=== PATIENT | female | born 1955 | race Caucasian/White ===

== ENCOUNTER → 2019-10-14 12:56 | Outpatient (CLI) | payer MEDICARE, SELFPAY ==
[2019-10-14 13:55] LABS: ALB/GLOB Ratio 1.1 RATIO (0.9-2.4); AST(SGOT) 24 U/L (15-37); Alanine Aminotransfer ALT/SGPT 51 U/L (13-56); Albumin, Serum 4.1 g/dL (3.2-5.0); Alkaline Phosphatase 46 U/L (45-117); Anion Gap 4 (5-15); BUN 14 mg/dL (7-18); BUN/Creat Ratio 17.2 RATIO (10-20); Calcium,Total 9.2 mg/dL (8.5-10.1); Chloride 104 mmol/L (98-107); Cholesterol 231 mg/dL (200); Creatinine, Serum 0.81 mg/dL (0.55-1.02); EST Glomerular Filtration Rate 75 mL/min (>60); Est Glom Filt Rate - Afr Amer 91 mL/min (>60); Globulin 3.7 g/dL (2.2-4.2); Glucose 91 mg/dL (74-106); High Density Lipoprotein 57 mg/dL; Potassium 3.7 mmol/L (3.5-5.1); Protein, Total 7.8 g/dL (6.4-8.2); Sodium Level 140 mmol/L (136-145); Triglycerides 182 mg/dL; Very Low Density Lipoprotein 36 mg/dL (5-40)
== END ==
PROVIDERS: PCP Internal Medicine; Visit Provider Nurse Practitioner Primary Care
DX: E78.5 Hyperlipidemia, unspecified (principal); I10 Essential (primary) hypertension
CPT/HCPCS: 80053; 80061

== ENCOUNTER → 2020-05-03 13:09 | Outpatient (CLI) | payer MEDICARE, SELFPAY ==
[2020-05-03 14:08] LABS: Cholesterol 244 mg/dL (200); High Density Lipoprotein 58 mg/dL; Triglycerides 240 mg/dL; Very Low Density Lipoprotein 48 mg/dL (5-40)
== END ==
PROVIDERS: PCP Internal Medicine; Referring Provider Nurse Practitioner Primary Care; Visit Provider Nurse Practitioner Primary Care
DX: E78.2 Mixed hyperlipidemia (principal)
CPT/HCPCS: 80061

== ENCOUNTER → 2020-12-07 11:59 | Outpatient (CLI) | payer MEDICARE, SELFPAY ==
[2020-12-07 13:20] LABS: Cholesterol 229 mg/dL (200); High Density Lipoprotein 57 mg/dL; Triglycerides 196 mg/dL; Very Low Density Lipoprotein 39 mg/dL (5-40)
== END ==
PROVIDERS: PCP Internal Medicine; Referring Provider Nurse Practitioner Primary Care; Visit Provider Nurse Practitioner Primary Care
DX: E78.2 Mixed hyperlipidemia (principal)
CPT/HCPCS: 80061

== ENCOUNTER → 2023-04-09 | Outpatient (CLI) | payer MEDICARE, SELFPAY ==
--- OUTSIDE RECORDS SUMMARY | 2023-04-09 08:12 | XMS RPT_ITS | CCD ---
Author Name Unknown Address [address] [place] [address] Organization [facility] Care Team Providers Care Neurology Epilepsy Physician Name Role Phone Daysi Olson MD Primary Care Provider DAYSI OLSON Primary Care Unavailable DAYSI OLSON Referring Unavailable DAYSI OLSON Primary Care Unavailable DAYSI OLSON Attending Unavailable DAYSI OLSON Primary Care Unavailable Medications Completed/Discontinued Medications Medication Drug Class(es) Dates Sig (Normalized) Sig (Original) calcium carbonate 1500 mg / cholecalciferol 200 unt oral tablet (10 sources) Vitamin D Start: 10-18-2004 take 1 tablet by mouth once daily CALCIUM 600 + D(3) 600 MG-200 UNIT ORAL TAB Take one(1) tablet daily. 0 10/18/2004 Active Problems Active Problems Problem Classification Problem Date Documented Date Episodic/Chronic Disorders of lipid metabolism (20 sources) Mixed hyperlipidemia; Translations: [Mixed hyperlipidemia] Onset: 10-18-2004 07-04-2017 Chronic Essential hypertension (14 sources) Hypertensive disorder; Translations: [Essential (primary) hypertension] Onset: 10-18-2004 12-16-2015 Chronic Menopausal disorders (10 sources) Menopausal symptom; Translations: [Menopausal and female climacteric states] Onset: 10-18-2004 10-18-2004 Chronic Miscellaneous mental health disorders (1 source) Primary insomnia; Translations: [Primary insomnia] Chronic Residual codes; unclassified (10 sources) Family history of malignant neoplasm of gastrointestinal tract; Translations: [Family history of malignant neoplasm of digestive organs] 10-23-2008 Episodic Past or Other Problems Problem Classification Problem Date Documented Da te Episodic/Chronic Other connective tissue disease (10 sources) Soft tissue lesion of shoulder region; Translations: [Bursopathy, unspecified] Onset: 09-30-2013 09-30-2013 Episodic Other connective tissue disease (10 sources) Impingement syndrome of left shoulder region; Translations: [Impingement syndrome of left shoulder] Onset: 01-19-2014 01-19-2014 Episodic Other screening for suspected conditions (not mental disorders or infectious disease) (14 sources) Patient encounter status; Translations: [Encounter for other screening for malignant neoplasm of breast] Onset: 10-07-2014 10-07-2014 Episodic Residual codes; unclassified (11 sources) Insomnia; Translations: [Insomnia, unspecified] Onset: 10-18-2004 10-18-2004 Episodic Spondylosis; intervertebral disc disorders; other back problems (10 sources) Low back pain; Translations: [Lumbago] Onset: 03-05-2012 03-05-2012 Episodic Results Test Name Value Interpretation Reference Range Facil ity Vital Signs Date Time Vital Sign Value Performing Clinician Faci lity 06-15-2022 08:45-0400 Diastolic blood pressure 80 mm[Hg] Daysi Olson MD Work Phone: [facility] 06-15-2022 08:45-0400 Systolic blood pressure 128 mm[Hg] Daysi Olson MD Work Phone: [facility] 06-15-2022 08:03-0400 Body weight 68.49 kg Daysi Olson MD Work Phone: [facility] 06-15-2022 08:03-0400 Heart rate 78 /min Daysi Olson MD Work Phone: [facility] 06-15-2022 08:03-0400 Respiratory rate 16 /min Daysi Olson MD Work Phone: [facility] 06-15-2022 08:03-0400 SaO2% (BldA) [Mass fraction] 97 % Daysi Olson MD Work Phone: [facility] 01-24-2022 09:36-0500 Body height 165.1 cm Daysi Olson MD Work Phone: [facility] 01-24-2022 09:36-0500 Body temperature 98.6 [degF] Daysi Olson MD Work Phone: [facility] 01-24-2022 09:36-0500 Body weight 68.95 kg Daysi Olson MD Work Phone: [facility] 01-24-2022 09:36-0500 Diastolic blood pressure 62 mm[Hg] Daysi Olson MD Work Phone: [facility] 01-24-2022 09:36-0500 Heart rate 70 /min Daysi Olson MD Work Phone: [facility] 01-24-2022 09:36-0500 Respiratory rate 12 /min Daysi Olson MD Work Phone: [facility] 01-24-2022 09:36-0500 SaO2% (BldA) [Mass fraction] 98 % Daysi Olson MD Work Phone: [facility] 01-24-2022 09:36-0500 Systolic blood pressure 110 mm[Hg] Daysi Olson MD Work Phone: [facility] 07-25-2021 11:11-0400 Body height 165.1 cm Daysi Olson MD Work Phone: [facility] 07-25-2021 11:11-0400 Body temperature 98.4 [degF] Daysi Olson MD Work Phone: [facility] 07-25-2021 11:11-0400 Body weight 67.13 kg Daysi Olson MD Work Phone: [facility] 07-25-2021 11:11-0400 Diastolic blood pressure 62 mm[Hg] Daysi Olson MD Work Phone: [facility] 07-25-2021 11:11-0400 Heart rate 90 /min Daysi Olson MD Work Phone: [facility] 07-25-2021 11:11-0400 Respiratory rate 12 /min Daysi Olson MD Work Phone: [facility] 07-25-2021 11:11-0400 SaO2% (BldA) [Mass fraction] 97 % Daysi Olson MD Work Phone: [facility] 07-25-2021 11:11-0400 Systolic blood pressure 112 mm[Hg] Daysi Olson MD Work Phone: [facility] Encounters Encounter Date Encounter Type Care Provider Facility Start: 03-27-2023 Telephone encounter Daysi allen MD Work Phone: [facility] Procedures Date Procedure Procedure Detail Performing Clinician Start: 06-16-2022 End: 06-16-2022 Mammography Daysi Olson MD Work Phone: Start: 01-20-2022 Lipid 1996 panel - S kristian or Plasma Screen W[facility] Start: 05-26-2021 Mammography Mammograph y Coordinator Start: 01-24-2021 Adult depression screening assessment Mammography Coordinator Start: 08-18-2019 Colonoscopy Mammograph y Coordinator Plan of Treatment Date Care Activity Detail Author Start: 01-20-2027 Lipid 1996 panel - S kristian or Plasma Lipid Screening [facility] Start: 01-20-2027 Lipid panel Lipid Screening [facility] Start: 01-20-2027 LIPID SCREEN LIPID SCREEN [facility] Start: 07-14-2026 LIPID SCREEN LIPID SCREEN [facility] Start: 12-07-2025 LIPID SCREEN LIPID SCREEN [facility] Start: 01-17-2025 DIABETES SCREEN DIABETES SCREEN [facility] Start: 01-17-2025 Diabetes Screening Diabetes Screenin g [facility] Start: 08-17-2024 Colonoscopy COLONOSCOPY [facility] Start: 08-17-2024 COLORECTAL CANCER SCREENING COLORECTAL CANCER SCREENING [facility] Start: 08-17-2024 Screening for malign ant neoplasm of colon [facility] Start: 01-25-2024 DIABETES SCREEN DIABETES SCREEN [facility] Start: 06-17-2023 Mammography [facility] Start: 06-17-2023 Screening for malign ant neoplasm of breast Mammogram Screening [facility] Start: 06-16-2023 ANNUAL PCP TEAM EDGER SAW OPERATOR ALEX DISEASE VISIT ANNUAL PCP TEAM CHRONIC DISEASE VISIT [facility] Start: 02-19-2023 Advance Directive Discussion Advance Directive Discussion [facility] Start: 02-19-2023 Depression Assessment Depression Ass essment [facility] Start: 01-24-2023 ANNUAL PCP TEAM EDGER SAW OPERATOR ALEX DISEASE VISIT ANNUAL PCP TEAM CHRONIC DISEASE VISIT [facility] Start: 01-24-2023 BP CONTROLLED (<130/80) BP CONTROLLE D (<130/80) [facility] Start: 01-24-2023 Urine microalbumin profile [facility] Immunizations Immunization Date Immunization Notes Care Provider Joseluis agustin 11-14-2022 influenza (aIIV4) vaccine, age 65+ yr, quadrivalent, PF (FLUAD QUAD) Daysi Olson MD Work Phone: [facility] 11-05-2020 influenza, high dose seasonal, preservative-free Mammography Coordinator [facility] Work Phone: 05-01-2020 COVID-19 vaccine, ag e 12+ yr (PFIZER-BIONTSimtrol - PURPLE TOP) Mammography Coordinator [facility] 02-16-2020 zoster vaccine recombinant Mammography Coordinator [facility] 10-31-2019 pneumococcal polysaccharide vaccine, 23 valent Daysi Olson MD Work Phone: [facility] 11-20-2018 influenza, high dose seasonal, preservative-free Mammography Coordinator [facility] 11-20-2018 pneumococcal conjuga te vaccine, 13 valent Mammography Coordinator [facility] 11-08-2016 influenza, seasonal, injectable Mammography Coordinator [facility] 03-30-2015 influenza, injectabl e, quadrivalent, contains preservative Mammography Coordinator [facility] Work Phone: 12-23-2013 influenza, seasonal, injectable Mammography Coordinator [facility] 12-20-2012 influenza virus vaccine, unspecified formulation Mammography Coordinator [facility] 12-14-2011 zoster vaccine, live Mammogr aphy Coordinator [facility] 11-30-2011 influenza virus vaccine, unspecified formulation Mammography Coordinator [facility] 12-12-2010 tetanus toxoid, redu gila diphtheria toxoid, and acellular pertussis vaccine, adsorbed Mammography Coordinator [facility] 02-20-1996 diphtheria and tetan us toxoids, adsorbed for pediatric use Mammography Coordinator [facility] Work Phone: Payers Date Payer Category Payer Medicare [employer] [place] [id number] 2019-Present [phone] [address] [place] [address] [facility] [id number] 2019 Medicare [employer] [place] [id number] 2019-Present [phone] [address] [place] [address] [facility] [id number] 2019 Medicare [id number] Social History Date Type Detail Facility Start: 12-12-2010 Tobacco smoking status NHIS Never sm oked tobacco [facility] Start: 01-24-2021 End: 03-16-2023 Alcohol intake Current drinker of alcohol (finding) [facility] Start: 01-24-2021 End: 03-13-2022 Alcohol intake [facility] Start: 01-22-2021 End: 01-23-2022 History SDOH Alcohol Frequency 5 [facility] Start: 01-22-2021 End: 01-23-2022 History SDOH Alcohol Std Drinks 1 [facility] Start: 01-22-2021 End: 01-23-2022 History SDOH Social Connections Get Together 4 [facility] Start: 01-22-2021 End: 01-23-2022 History SDOH Social Connections Meetings 3 [facility] Start: 01-22-2021 End: 01-23-2022 History SDOH Physical Activity DPW 6 [facility] Start: 01-22-2021 End: 01-23-2022 History SDOH Transport Med 2 [facility] Start: 10-20-2019 Education 15 [facility] Start: 1955 Sex Assigned At Female C [facility] Start: 05-16-2021 End: 01-17-2022 Exposure to SARS-CoV-2 (event) Not sure [facility] Start: 12-12-2010 Tobacco use and exposure Smoke less tobacco non-user [facility] Start: 01-23-2022 History SDOH Social Connections Get Together 98 [facility] Start: 01-23-2022 End: 03-13-2022 Social connection and isolation panel [facility] How often do you get together with friends or relatives? Patient refused [facility] Do you belong to any clubs or organizations such as pentecostal groups, unions, fraternal or athletic groups, or school groups? Yes [facility] Are you now , , , , never or living with a partner? [facility] Do you feel stress - tense, restless, nervous, or anxious, or unable to sleep at night because your mind is troubled all the time - these days [OSQ] Only a little [facility] (I/We) worried wheth er (my/our) food would run out before (I/we) got money to buy more. Never true [facility] In the past 12 month s, was there a time when you were not able to pay the mortgage or rent on time? No [facility] Start: 01-22-2021 Gender identity Identifies as female gender (finding) [facility] Clinical Notes 05-26-2021 to 03-28-2023 Telephone Encounter - Nakul Mera RN - 03/28/2023 11:10 AM ESTTelephone Encounter - Aislinn Burch MA - 03/27/2023 9:47 AM ESTTelephone Encounter - Katty Desai - 03/27/2023 7:02 AM EST Note Date & Type Note Facility 03-28-2023 Miscellaneous Notes Pt reports she scheduled the mammogram on . Order pended, please file if agreeable. Aislinn Burch MA Pt sent in [facility] message requesting an order for her yearly Mammogram, her last mammogram was 06/16/2022 Please review and advise Thank you! documented in this encounter [facility] 03-16-2023 Note HNO ID: [id number] Author: HITESH CHANDLER PA Service: ? Author Type: Physician Automobile Rental Clerk Type: Progress Notes Filed: 03/16/2023 13:06 Note Text: This note was created using Zaldivariter. Subjective Dayanara Enciso is a 67 year old female. HPI 67-year-old female presents for left ear feeling clogged. Symptoms started last night after washing her hair. She felt like there is some fluid in there. She states is difficult to hear out of the ear. No fevers. No cough or congestion. She states she always has some postnasal drainage, unchanged. She has a little bit of a scratchy throat, but states is not sore. No vomiting or diarrhea. No other complaint. Review of Systems Constitutional: Negative for chills and fever. HENT: Positive for hearing loss (With left ear feeling clogged) and postnasal drip (Chronic). Negative for congestion, ear discharge, ear pain and sore throat. Respiratory: Negative for cough and shortness of breath. Cardiovascular: Negative for chest pain. Gastrointestinal: Negative for diarrhea and vomiting. Objective BP 144/86 Pulse 95 Temp 36.4 ?C (97.6 ?F) Resp 20 Wt 69.9 kg (154 lb 3.2 oz) SpO2 99% BMI 25.66 kg/m? Physical Exam Vitals and nursing note reviewed. Constitutional: General: She is not in acute distress. Appearance: Normal appearance. She is not toxic-appearing. HENT: Right Ear: Tympanic membrane and ear canal normal. Left Ear: Ear canal normal. A middle ear effusion is present. There is impacted cerumen. Ears: Comments: Impacted cerumen left ear. Ear lavage completed by LYNN. Postprocedure exam reveals no bleeding, no perforation. Small amount of clear fluid behind left TM. No signs of infection. Nose: Nose normal. Mouth/Throat: Mouth: Mucous membranes are moist. Pharynx: No oropharyngeal exudate or posterior oropharyngeal erythema. Eyes: Conjunctiva/sclera: Conjunctivae normal. Cardiovascular: Rate and Rhythm: Normal rate and regular rhythm. Pulmonary: Effort: Pulmonary effort is normal. Breath sounds: Normal breath sounds. Neurological: Mental Status: She is alert. Assessment and Plan ASSESSMENT/PLAN: 1. Impacted cerumen of left ear - ICD9: 380.4, ICD10: H61.22 (primary diagnosis) - REMOVAL OF IMPACTED CERUMEN - INSTRUMENTATION -Ear lavage completed by LYNN. Post procedure exam reveals small amount of clear fluid behind left TM. No signs of infection. No bleeding. No perforation. 2. Dysfunction of left eustachian tube - ICD9: 381.81, ICD10: H69.92 -Patient states she has had some sinus issues. She does have small left-sided mid ear effusion. Clear fluid. No signs of infection. Recommend Flonase x 1 week. -Advised if no improvement in her hearing issues or her ear feeling clogged, she needs to follow-up with PCP next week. She understands. Diagnosis and treatment plan were discussed and questions were answered to the patient's satisfaction. Pt acknowledged understanding of concepts and follow up plan. Specific signs and symptoms that would indicate the need for higher level of care were discussed in detail warranting prompt ER evaluation. JAMIA Kinsey [facility] 06-19-2022 Miscellaneous Notes June 19, 2022 PID: [id number] Dayanara Enciso [id number] [place] [address] Dear Ms. Enciso, We are pleased to inform you that the results of your recent breast imaging exam on 06/16/2022 are normal. Early detection of cancer is very important. We also understand recommendations regarding breast cancer screening are controversial. Please discuss with your primary care provider which strategy is best for you and whether a mammogram is right for you. Your imaging studies and report will be kept on file at [facility] as part of your permanent medical record and are available for your continuing care. Thank you for allowing us to help in meeting your health care needs. Sincerely, Dr. Urrutia Interpreting Radiologist [facility] (Normal over 40) documented in this encounter [facility] 06-16-2022 Note HNO ID: [id number] Author: RT Haresh(R) Service: ? Author Type: Technologist Type: Progress Notes Filed: 06/16/2022 9:18 AM Note Text: Radiology Service Progress Note PATIENT NAME: Dayanara Enciso DATE OF SERVICE: June 16, 2022 TIME: 9:18 AM PATIENT IDENTITY VERIFICATION COMPLETED USING TWO (2) IDENTIFIERS: Name and Date of confirmed by patient verbally. FALL SCREENING: Has the patient had 2 falls in the last year or 1 fall with injury or currently using an Ambulatory Assistive Device (Walker, Cane, Wheelchair, Crutches, etc.)? No PATIENT GENDER DATA: Female. status: : No status: NO. PATIENT RELEVANT IMPLANT DATA REVIEWED: Not Applicable RADIOLOGY DEPARTMENT: Mammography PERIPHERAL IV DATA: Not applicable SIGNED BY: RT Haresh(R) June 16, 2022 9:18 AM [facility] 06-16-2022 History of Present illness Narrative Radiology Service Progress Note PATIENT NAME: Dayanara Enciso DATE OF SERVICE: June 16, 2022 TIME: 9:18 AM PATIENT IDENTITY VERIFICATION COMPLETED USING TWO (2) IDENTIFIERS: Name and Date of confirmed by patient verbally. FALL SCREENING: Has the patient had 2 falls in the last year or 1 fall with injury or currently using an Ambulatory Assistive Device (Walker, Cane, Wheelchair, Crutches, etc.)? No PATIENT GENDER DATA: Female. status: : No status: NO. PATIENT RELEVANT IMPLANT DATA REVIEWED: Not Applicable RADIOLOGY DEPARTMENT: Mammography PERIPHERAL IV DATA: Not applicable SIGNED BY: RT Haresh(R) June 16, 2022 9:18 AM documented in this encounter [facility] 06-15-2022 Note HNO ID: [id number] Author: Daysi Olson MD Service: ? Author Type: Physician Type: Progress Notes Filed: 06/15/2022 1:43 PM Note Text: Medicare Yearly Visit Medical B eligibilty date age 63 Date of last exam none in the past year PAST MEDICAL HISTORY Diagnosis Date Diverticulosis of colon (without mention of hemorrhage) Diverticulosis of colon (without mention of hemorrhage) Family history of malignant neoplasm of gastrointestinal tract Family history of malignant neoplasm of gastrointestinal tract Internal hemorrhoids without mention of complication Unspecified essential hypertension PAST SURGICAL HISTORY Procedure Laterality Date COLONOSCOPY FLX DX W/COLLJ SPEC WHEN PFRMD 12/2003 Colonoscopy COLONOSCOPY FLX DX W/COLLJ SPEC WHEN PFRMD 01/29/09 COLONOSCOPY FLX DX W/COLLJ SPEC WHEN PFRMD 12/25/13 Colonoscopy CORRECT BUNION,SIMPLE Bunion OOPHORECTOMY PARTIAL/TOTAL UNI/BI Oophorectomy TOTAL ABDOMINAL HYSTERECT W/WO RMVL TUBE OVARY 2002 Hysterectomy, MIRI/BSO ALLERGIES: Patient has no known allergies. Medications reviewed: Yes FAMILY HISTORY Problem Relation Age of Onset Coronary Artery Disease Mother age 61 Colon Cancer Father dx age 75 Coronary Artery Disease Father 02/2005 Diabetes Mother Hypertension Mother SOCIAL HISTORY: Social History Tobacco Use Smoking status: Never Smokeless tobacco: Never Substance Use Topics Alcohol use: Yes Alcohol/week: 10.0 standard drinks Comment: occasionally Drug use: No Dayanara do regular walking exercise, 9 months of the year. Unless there is snow on the ground she is not able to. She watches her diet for sodium, low fat and low cholesterol most of the time. List of current specialists seen: Nicole chavarria End of Live Planning discussed including patients advanced directive wishes: Yes I am willing to follow Dayanara's advanced directives. PHQ-2 / Depression screen She in the past two weeks denies having felt down, depressed, hopeless, or with little interest or pleasure in doing things. Functional Ability/Safety Screen 1. Was the patient's timed Up and Go test unsteady or longer than 30 seconds? No 2. Does the patient need help with the phone, transportation, shopping,preparing meals, housework, laundry, medications or managing money? No 3. Does your home have rugs in the hallway, lack of grab bars in the bathroom, lack of handrails on the stairs or have poor lighting? No Hearing Evaluation: within normal limits and normal PHYSICAL EXAM BP 138/82 Pulse 78 Resp 16 Wt 68.5 kg (151 lb) SpO2 97% BMI 25.13 kg/m? Alert and oriented X 3: YES Body mass index is 25.13 kg/m?. ASSESSMENT/PLAN: 67 year old female The following prevention plan was discussed during the office visit and provided to the patient: Daysi Olson MD Reason for Visit Patient presents with: Physical: Needs Mammogram ordered to schedule Left side discomfort x 2 days Dayanara Enciso is a 67 year old female who presents here today for Above Complaints.. Health Maintenance BONE DENSITY ADVANCE DIRECTIVE DISCUSSION DEPRESSION ASSESSMENT MAMMOGRAM HPI Refused bone density as she does not want to take medication Wanting to have a mammogram today. HTN: BP controlled today. Checks BP at home. Compliant with medications. Denies any chest pain, palpitations, SOB, swelling in the feet. Careful with diet to avoid salt, trying to eat more fruits and vegetables, exercises regularly Depression Screening 07/04/2017 07/09/2018 01/24/2022 06/15/2022 PHQ-2 Score 0 0 0 0 Depression screening tool completed and reviewed. Based on score and interview, patient is not at risk for depression. Screening tool discussed with patient, and I recommended no further intervention at this time. No problem-specific Assessment AND Plan notes found for this encounter. PAST MEDICAL HISTORY Diagnosis Date Diverticulosis of colon (without mention of hemorrhage) Diverticulosis of colon (without mention of hemorrhage) Family history of malignant neoplasm of gastrointestinal tract Family history of malignant neoplasm of gastrointestinal tract Internal hemorrhoids without mention of complication Unspecified essential hypertension PAST SURGICAL HISTORY Procedure Laterality Date COLONOSCOPY FLX DX W/COLLJ SPEC WHEN PFRMD 12/2003 Colonoscopy COLONOSCOPY FLX DX W/COLLJ SPEC WHEN PFRMD 01/29/09 COLONOSCOPY FLX DX W/COLLJ SPEC WHEN PFRMD 12/25/13 Colonoscopy CORRECT BUNION,SIMPLE Bunion OOPHORECTOMY PARTIAL/TOTAL UNI/BI Oophorectomy TOTAL ABDOMINAL HYSTERECT W/WO RMVL TUBE OVARY 2002 Hysterectomy, MIRI/BSO FAMILY HISTORY Problem Relation Age of Onset Coronary Artery Disease Mother age 61 Colon Cancer Father dx age 75 Coronary Artery Disease Father 02/2005 Diabetes Mother Hypertension Mother Social History Tobacco Use Smoking status: Never Smokeless tobacco: Crystal (more content not included)... [facility] 06-15-2022 History of Present illness Narrative Medicare Yearly Visit Medical B eligibilty date age 63 Date of last exam none in the past year PAST MEDICAL HISTORY Diagnosis Date Diverticulosis of colon (without mention of hemorrhage) Diverticulosis of colon (without mention of hemorrhage) Family history of malignant neoplasm of gastrointestinal tract Family history of malignant neoplasm of gastrointestinal tract Internal hemorrhoids without mention of complication Unspecified essential hypertension PAST SURGICAL HISTORY Procedure Laterality Date COLONOSCOPY FLX DX W/COLLJ SPEC WHEN PFRMD 12/2003 Colonoscopy COLONOSCOPY FLX DX W/COLLJ SPEC WHEN PFRMD 01/29/09 COLONOSCOPY FLX DX W/COLLJ SPEC WHEN PFRMD 12/25/13 Colonoscopy CORRECT BUNION,SIMPLE Bunion OOPHORECTOMY PARTIAL/TOTAL UNI/BI Oophorectomy TOTAL ABDOMINAL HYSTERECT W/WO RMVL TUBE OVARY 2002 Hysterectomy, MIRI/BSO ALLERGIES: Patient has no known allergies. Medications reviewed: Yes FAMILY HISTORY Problem Relation Age of Onset Coronary Artery Disease Mother age 61 Colon Cancer Father dx age 75 Coronary Artery Disease Father 02/2005 Diabetes Mother Hypertension Mother SOCIAL HISTORY: Social History Tobacco Use Smoking status: Never Smokeless tobacco: Never Substance Use Topics Alcohol use: Yes Alcohol/week: 10.0 standard drinks Comment: occasionally Drug use: No Dayanara do regular walking exercise, 9 months of the year. Unless there is snow on the ground she is not able to. She watches her diet for sodium, low fat and low cholesterol most of the time. List of current specialists seen: Nicole chavarria End of Live Planning discussed including patients advanced directive wishes: Yes I am willing to follow Dayanara's advanced directives. PHQ-2 / Depression screen She in the past two weeks denies having felt down, depressed, hopeless, or with little interest or pleasure in doing things. Functional Ability/Safety Screen 1. Was the patient's timed Up and Go test unsteady or longer than 30 seconds? No 2. Does the patient need help with the phone, transportation, shopping,preparing meals, housework, laundry, medications or managing money? No 3. Does your home have rugs in the hallway, lack of grab bars in the bathroom, lack of handrails on the stairs or have poor lighting? No Hearing Evaluation: within normal limits and normal PHYSICAL EXAM BP 138/82 Pulse 78 Resp 16 Wt 68.5 kg (151 lb) SpO2 97% BMI 25.13 kg/m Alert and oriented X 3: YES Body mass index is 25.13 kg/m . ASSESSMENT/PLAN: 67 year old female The following prevention plan was discussed during the office visit and provided to the patient: Daysi Olson MD Reason for Visit Patient presents with: Physical: Needs Mammogram ordered to schedule Left side discomfort x 2 days Dayanara Enciso is a 67 year old female who presents here today for Above Complaints.. Health Maintenance BONE DENSITY ADVANCE DIRECTIVE DISCUSSION DEPRESSION ASSESSMENT MAMMOGRAM HPI Refused bone density as she does not want to take medication Wanting to have a mammogram today. HTN: BP controlled today. Checks BP at home. Compliant with medications. Denies any chest pain, palpitations, SOB, swelling in the feet. Careful with diet to avoid salt, trying to eat more fruits and vegetables, exercises regularly Depression Screening 07/04/2017 07/09/2018 01/24/2022 06/15/2022 PHQ-2 Score 0 0 0 0 Depression screening tool completed and reviewed. Based on score and interview, patient is not at risk for depression. Screening tool discussed with patient, and I recommended no further intervention at this time. No problem-specific Assessment & Plan notes found for this encounter. PAST MEDICAL HISTORY Diagnosis Date Diverticulosis of colon (without mention of hemorrhage) Diverticulosis of colon (without mention of hemorrhage) Family history of malignant neoplasm of gastrointestinal tract Family history of malignant neoplasm of gastrointestinal tract Internal hemorrhoids without mention of complication Unspecified essential hypertension PAST SURGICAL HISTORY Procedure Laterality Date COLONOSCOPY FLX DX W/COLLJ SPEC WHEN PFRMD 12/2003 Colonoscopy COLONOSCOPY FLX DX W/COLLJ SPEC WHEN PFRMD 01/29/09 COLONOSCOPY FLX DX W/COLLJ SPEC WHEN PFRMD 12/25/13 Colonoscopy CORRECT BUNION,SIMPLE Bunion OOPHORECTOMY PARTIAL/TOTAL UNI/BI Oophorectomy TOTAL ABDOMINAL HYSTERECT W/WO RMVL TUBE OVARY 2001 Hysterectomy, MIRI/BSO FAMILY HISTORY Problem Relation Age of Onset Coronary Artery Disease Mother age 61 Colon Cancer Father dx age 75 Coronary Artery Disease Father 02/2005 Diabetes Mother Hypertension Mother Social History Tobacco Use Smoking status: Never Smokeless tobacco: Never Substance Use Topics Alcohol use: Yes Alcohol/week: 10.0 standard drinks Comment: occasionally Drug use: No Past medical history, appointments, medications, allergies reviewed. Pertinent Lab/Diagnostic Studies are reviewed and discussed today Current Outpatient Medications: hydroCHLOROthiazide (HYDRODIURIL, ESIDRIX) 25 mg tablet enalapril (VASOTEC) 10 mg tablet rosuvastatin (CRESTOR) 10 mg tablet omega-3 fatty acids (FISH OIL CONCENTRATE ORAL) ubidecarenone (CO Q-10 ORAL) CALCIUM 600 + D(3) 600 MG-200 UNIT ORAL TAB traZODone (DESYREL) 50 mg tablet Review of Systems CONSTITUTIONAL: No fevers, chills night sweats, unintended weight loss CARDIOVASCULAR: No chest pain, dyspnea, palpitations, orthopnea, PND, ankle edema. PULM: No dyspnea, unexplained cough. GI: No dysphagia/odynophagia, problematic reflux, constipation, diarrhea, changes in stool habits, hematochezia, melena. : No new urinary complaints, including dysuria, gross hematuria or pyuria. NEURO: No new balance problems, peripheral weakness/paresthesias or numbness of concern. Physical Exam BP 138/82 Pulse 78 Resp 16 Wt 68.5 kg (151 lb) SpO2 97% BMI 25.13 kg/m General appearance: Well appearing, alert, in no acute distress, well nourished. Skin: Skin color, texture, turgor normal, no suspicious rashes or lesions Head: Normocephalic, no masses, lesions, tenderness or abnormalities Eyes: Anicteric sclera. Pupils are equally round and reactive to light. Extraocular movements are intact. Lungs: Lungs clear to auscultation. No wheezing, rhonchi, rales Heart: RRR without murmur, gallop, or rubs. Extremities: No deformities, edema, skin discoloration, clubbing or cyanosis. Good capillary refill. ASSESSMENT/PLAN: 1. Medicare annual wellness visit, subsequent - ICD9: V70.0, ICD10: Z00.00 (primary diagnosis) - Counseled on healthy diet and regular exercise - Calcium intake with supplements or by diet of 1000 mg/day for under 50, 7724-4885 mg/day for 50+ 2. Breast cancer screening by mammogram - ICD9: V76.12, ICD10: Z12.31 - Completed pelvic and breast exam - Encouraged monthly BSE - Follow up for annual exam in one year. - VERONICA SCREENING 3. Essential hypertension - ICD9: 401.9, ICD10: I10 - good control - Recommended regular aerobic exercise. - Recommend home blood pressure monitoring, to bring results in on next visit - Goal of BP <130/80 Daysi Olson MD documented in this encounter [facility] 01-24-2022 Instructions Daysi Olson MD - 01/24/2022 10:20 AM EST Sleep Hygiene (Edu) You have been given information on Sleep Hygiene. Sleep hygiene is the practice of following good sleep habits in order to get a restful, effective night s sleep. Poor sleep hygiene can lead to long-term insomnia and sleep deprivation. When you do not get restful, effective sleep, it will interfere with work, driving, and normal day-to-day activities. It can also have bad effects on your physical and mental health. Fortunately, there are a few simple guidelines that can help you to improve your sleep. They include changes in your personal sleeping habits and your sleeping environment, along with the creation of a routine for getting ready to go to bed. The following tips will help you with your sleep habits: Establish a constant bedtime and an awakening time. This is one of the most important habits in developing good sleep patterns. Try to go to bed at the same time every night, and awaken at the same time each morning. You should not nap more than 30 minutes. Avoid alcohol 4-6 hours before bedtime. Alcohol does have a sleep-inducing effect, however, as the alcohol levels in your blood start to decrease, many people experience a stimulant or wake-up effect. Avoid caffeine 4-6 hours before bedtime. This includes coffee, tea, soda, and chocolate. Avoid spicy foods and foods with a lot of sugar 4-6 hours before bedtime. These foods typically affect your ability to stay asleep. Try to eat a light snack with foods high in tryptophan just before bedtime. Milk, bananas, yogurt, and turkey are some examples. Tryptophan increases levels of certain chemicals (neurotransmitters) in your brain. Studies have shown that this has a calming and sleep-inducing effect. Get into the habit of establishing a pre-sleep ritual. Examples of some things that can help you get to sleep include taking a warm bath or reading just before going to bed. Improve your sleep environment. For example, block out any distracting noise, eliminate as much light as you can, adjust the room to a comfortable temperature, and be sure to have comfortable bedding. Make sure that your bed is only used for sleeping. In time, your mind will associate your bed with sleep. Exercise regularly, but not right before bed. Regular exercise can help deepen sleep. However, strenuous exercise too close to bedtime may be stimulating and lessen your ability to fall asleep. Stop smoking entirely. If you are not able to quit, do not smoke just before bedtime. Nicotine is a stimulant. In addition, many physical health problems, such as some chronic illnesses, arthritis, acid reflux (heartburn), and undiagnosed sleep disorders, can interfere with sleep. Certain medications used to treat these medical problems may also have sleeplessness as a side-effect. Psychological or mental health problems, including depression and anxiety can cause difficulty sleeping. You should follow up with your doctor for these issues, so that together, you can develop a plan for treatment. There are also medications to help you with sleep problems; however, they are only a short-term solution and can have undesirable side-effects. Remember, the rodriguez to the best overall improvement of sleep is to establish good sleep hygiene to help you fall asleep naturally. For more information, contact your doctor, or call or visit the National Sleep Foundation at www.sleepfoundation.org. documented in this encounter [facility] 01-24-2022 History of Present illness Narrative Reason for Visit Patient presents with: F/U 6 months: follow up- HCTZ and refills Dayanara Enciso is a 66 year old female who presents here today for Above Complaints.. Health Maintenance DTAP,TDAP,TD(3 - Td or Tdap) DEPRESSION ASSESSMENT HPI Hypertension: BP controlled today 110/62. Tolerating current medication regime well. Voices no complaints. Checks BP couple times a month. No chest pain, palpitations or edema. No SOB. Exercise: Walks a couple of miles daily. Still complains of aches and pains. Occasional ibuprofen use. Diet: Eats 3 meals a day with a couple of snacks. Poor fluid intake. Encouraged increasing hydration. Lipids reviewed. Uses salt shaker frequently, eating red meat. Plans to eat more fruits and vegetables. Sleep: Difficulty sleeping. Chronic issue for the last few years. Average 6 hours a night. Tylenol pm every night. Avoids naps during the day. Denies stressors. Patients states she struggles to shut off her brain at HS. Denies caffeinated beverages in the evening. Eats a piece of resses cups. She tried melatonin but does not work for her., she would like a trial of trazodone. No problem-specific Assessment & Plan notes found for this encounter. PAST MEDICAL HISTORY Diagnosis Date Diverticulosis of colon (without mention of hemorrhage) Diverticulosis of colon (without mention of hemorrhage) Family history of malignant neoplasm of gastrointestinal tract Family history of malignant neoplasm of gastrointestinal tract Internal hemorrhoids without mention of complication Unspecified essential hypertension PAST SURGICAL HISTORY Procedure Laterality Date COLONOSCOPY FLX DX W/COLLJ SPEC WHEN PFRMD 12/2003 Colonoscopy COLONOSCOPY FLX DX W/COLLJ SPEC WHEN PFRMD 01/29/09 COLONOSCOPY FLX DX W/COLLJ SPEC WHEN PFRMD 12/25/13 Colonoscopy CORRECT BUNION,SIMPLE Bunion OOPHORECTOMY PARTIAL/TOTAL UNI/BI Oophorectomy TOTAL ABDOMINAL HYSTERECT W/WO RMVL TUBE OVARY 2001 Hysterectomy, MIRI/BSO FAMILY HISTORY Problem Relation Age of Onset Coronary Artery Disease Mother age 61 Colon Cancer Father dx age 75 Coronary Artery Disease Father 02/2005 Diabetes Mother Hypertension Mother Social History Tobacco Use Smoking status: Never Smokeless tobacco: Never Substance Use Topics Alcohol use: Yes Alcohol/week: 10.0 standard drinks Comment: occasionally Drug use: No Past medical history, appointments, medications, allergies reviewed. Pertinent Lab/Diagnostic Studies are reviewed and discussed today Current Outpatient Medications: rosuvastatin (CRESTOR) 10 mg tablet hydroCHLOROthiazide (HYDRODIURIL, ESIDRIX) 25 mg tablet enalapril (VASOTEC) 10 mg tablet omega-3 fatty acids (FISH OIL CONCENTRATE ORAL) ubidecarenone (CO Q-10 ORAL) CALCIUM 600 + D(3) 600 MG-200 UNIT ORAL TAB Review of Systems CONSTITUTIONAL: No fevers, chills night sweats, unintended weight loss CARDIOVASCULAR: No chest pain, dyspnea, palpitations, orthopnea, PND, ankle edema. PULM: No dyspnea, unexplained cough. GI: No dysphagia/odynophagia, problematic reflux, constipation, diarrhea, changes in stool habits, hematochezia, melena. : No new urinary complaints, including dysuria, gross hematuria or pyuria. NEURO: No new balance problems, peripheral weakness/paresthesias or numbness of concern. Physical Exam BP 110/62 (BP Site: Left Arm, BP Position: Sitting, BP Cuff Size: Large Adult) Pulse 70 Temp 37 C (98.6 F) Resp 12 Ht 165.1 cm (5' 5 ) Wt 68.9 kg (152 lb) SpO2 98% BMI 25.29 kg/m General appearance: Well appearing, alert, in no acute distress, well nourished. Skin: Skin color, texture, turgor normal, no suspicious rashes or lesions Head: Normocephalic, no masses, lesions, tenderness or abnormalities Eyes: Anicteric sclera. Pupils are equally round and reactive to light. Extraocular movements are intact. Lungs: Lungs clear to auscultation. No wheezing, rhonchi, rales Heart: RRR without murmur, gallop, or rubs. Extremities: No deformities, edema, skin discoloration, clubbing or cyanosis. Good capillary refill. ASSESSMENT/PLAN: 1. Insomnia, unspecified type - ICD9: 780.52, ICD10: G47.00 (primary diagnosis) Went over the side effect profile for the drug with the patient, mentioned every one of it , discussed appropriate concerns , alternatives and benefits of the drug, - TRAZODONE 50 MG TABLET 2. Essential hypertension - ICD9: 401.9, ICD10: I10 - good control - Recommended regular aerobic exercise. - Recommend home blood pressure monitoring, to bring results in on next visit - Goal of BP <130/80 - HYDROCHLOROTHIAZIDE 25 MG TABLET - ENALAPRIL MALEATE 10 MG TABLET 3. Mixed hyperlipidemia - ICD9: 272.2, ICD10: E78.2 - good control - Continue current medication. - LIPID PANEL BASIC - COMP METABOLIC PANEL Daysi Olson MD documented in this encounter [facility] 01-10-2022 Miscellaneous Notes Patient has been identified by name and date of : Yes Patient phones for refill(s): Requested Prescriptions Pending Prescriptions Disp Refills rosuvastatin (CRESTOR) 10 mg tablet 90 tablet 3 Sig: Take 1 tablet by mouth once daily. for cholesterol Date of last office visit in primary care: 07/25/21 next apt 01/24/22 Last 2 Encounter Wt Readings: Date: Wt: 07/25/2021 67.1 kg (148 lb) 01/24/2021 65.8 kg (145 lb) Previous labs/tests for medication: Cholesterol: HDL Cholesterol (mg/dL) Date Value 07/14/2021 55 12/07/2020 Test sent to [facility]. LDL Cholesterol (mg/dL) Date Value 07/14/2021 104 12/07/2020 Test sent to [facility]. ALT (U/L) Date Value 01/24/2021 Non HDL Cholesterol (mg/dL) Date Value 07/14/2021 130 12/07/2020 Test sent to [facility]. Thank you. Martha Mejia LPN documented in this encounter [facility] 07-25-2021 History of Present illness Narrative Reason for Visit Patient presents with: Established Patient: 6 month follow up Dayanara Enciso is a 66 year old female who presents here today for Above Complaints.. Health Maintenance DTAP,TDAP,TD(3 - Td or Tdap) ADVANCE DIRECTIVE DISCUSSION COVID-19 VACCINE(4 - Booster for Pfizer series) HPI HTN: Compliant with medications. Denies any chest pain, palpitations, or edema. No SOB. Doesn't check BP at home generally. Careful with diet to avoid salt, trying to eat more fruits and vegetables, exercises regularly. We discussed today cutting down the hctz from 25 to 12.5 HPL: Reviewed test results with patient , takes medications regularly , does not report side effects. Conscious to avoid red meats, full fat dairy and its by products. Exercising 3 to 5 times a week. She has normal aches and pains of 66 year old. The 10-year ASCVD risk score (Zara DC Jr., et al., 2013) is: 7.7% Values used to calculate the score: Age: 66 years Sex: Female Is Non- : No Diabetic: No Tobacco smoker: No Systolic Blood Pressure: 112 mmHg Is BP treated: Yes HDL Cholesterol: 55 mg/dL Total Cholesterol: 185 mg/dL Patient has no issues with sleep, she takes a Tylenol PM every night and her old lady aches and pains. No problem-specific Assessment & Plan notes found for this encounter. PAST MEDICAL HISTORY Diagnosis Date Diverticulosis of colon (without mention of hemorrhage) Diverticulosis of colon (without mention of hemorrhage) Family history of malignant neoplasm of gastrointestinal tract Family history of malignant neoplasm of gastrointestinal tract Internal hemorrhoids without mention of complication Unspecified essential hypertension PAST SURGICAL HISTORY Procedure Laterality Date COLONOSCOPY FLX DX W/COLLJ SPEC WHEN PFRMD 12/2003 Colonoscopy COLONOSCOPY FLX DX W/COLLJ SPEC WHEN PFRMD 01/29/09 COLONOSCOPY FLX DX W/COLLJ SPEC WHEN PFRMD 12/25/13 Colonoscopy CORRECT BUNION,SIMPLE Bunion OOPHORECTOMY PARTIAL/TOTAL UNI/BI Oophorectomy TOTAL ABDOMINAL HYSTERECT W/WO RMVL TUBE OVARY 2002 Hysterectomy, MIRI/BSO FAMILY HISTORY Problem Relation Age of Onset Coronary Artery Disease Mother age 61 Colon Cancer Father dx age 75 Coronary Artery Disease Father 02/2005 Diabetes Mother Hypertension Mother Social History Tobacco Use Smoking status: Never Smoker Smokeless tobacco: Never Used Substance Use Topics Alcohol use: Yes Alcohol/week: 10.0 standard drinks Comment: occasionally Drug use: No Past medical history, appointments, medications, allergies reviewed. Pertinent Lab/Diagnostic Studies are reviewed and discussed today Current Outpatient Medications: hydroCHLOROthiazide (HYDRODIURIL, ESIDRIX) 25 mg tablet enalapril (VASOTEC) 10 mg tablet omega-3 fatty acids (FISH OIL CONCENTRATE ORAL) ubidecarenone (CO Q-10 ORAL) rosuvastatin (CRESTOR) 10 mg tablet CALCIUM 600 + D(3) 600 MG-200 UNIT ORAL TAB Review of Systems CONSTITUTIONAL: No fevers, chills night sweats, unintended weight loss CARDIOVASCULAR: No chest pain, dyspnea, palpitations, orthopnea, PND, ankle edema. PULM: No dyspnea, unexplained cough. GI: No dysphagia/odynophagia, problematic reflux, constipation, diarrhea, changes in stool habits, hematochezia, melena. : No new urinary complaints, including dysuria, gross hematuria or pyuria. NEURO: No new balance problems, peripheral weakness/paresthesias or numbness of concern. Physical Exam BP 112/62 (BP Site: Left Arm, BP Position: Sitting, BP Cuff Size: Large Adult) Pulse 90 Temp 36.9 C (98.4 F) Resp 12 Ht 165.1 cm (5' 5 ) Wt 67.1 kg (148 lb) SpO2 97% BMI 24.63 kg/m General appearance: Well appearing, alert, in no acute distress, well nourished. Skin: Skin color, texture, turgor normal, no suspicious rashes or lesions Head: Normocephalic, no masses, lesions, tenderness or abnormalities Eyes: Anicteric sclera. Pupils are equally round and reactive to light. Extraocular movements are intact. Lungs: Lungs clear to auscultation. No wheezing, rhonchi, rales Heart: RRR without murmur, gallop, or rubs. Extremities: No deformities, edema, skin discoloration, clubbing or cyanosis. Good capillary refill. ASSESSMENT/PLAN: 1. Hypertension, unspecified type - ICD9: 401.9, ICD10: I10 (primary diagnosis) Trial of reducing the hctz to 12.5 daily as she may not need the high dose. She will cut it down and keep a log, and report 2. Mixed hyperlipidemia - ICD9: 272.2, ICD10: E78.2 - good control - Continue current medication. 3. Primary insomnia - ICD9: 307.42, ICD10: F51.01 Taking care of it herself. Daysi Olson MD documented in this encounter [facility] 05-26-2021 Miscellaneous Notes May 26, 2021 PID: [id number] Dayanara Enciso [id number] [place] [address] Dear Ms. Enciso, We are pleased to inform you that the results of your recent breast imaging exam on 05/26/2021 are normal. Early detection of cancer is very important. We also understand recommendations regarding breast cancer screening are controversial. Please discuss with your primary care provider which strategy is best for you and whether a mammogram is right for you. Your imaging studies and report will be kept on file at [facility] as part of your permanent medical record and are available for your continuing care. Thank you for allowing us to help in meeting your health care needs. Sincerely, Dr. Bocanegra Interpreting Radiologist [facility] (Normal over 40) documented in this encounter [facility] Diagnosis Mixed hyperlipidemia [facility] Diagnosis Hypertension Unspecified essential hypertension [facility] Diagnosis Mixed hyperlipidemia- Primary [facility] Diagnosis Insomnia, unspecified type- Primary Essential hypertension Unspecified essential hypertension Mixed hyperlipidemia [facility] Diagnosis Medicare annual wellness visit, subsequent- Primary Routine general medical examination at a [facility] Breast cancer screening by mammogram Essential hypertension Unspecified essential hypertension [facility] Diagnosis Breast cancer screening by mammogram [facility] Diagnosis Encounter for screening mammogram for breast cancer- Primary documented in this encounter [facility] for referral (narrative)* Diagnostic Procedure Only (Routine) - Authorized Specialty Diagnoses / Procedures Referred By Jitendra escalera Referred To Contact [facility] Diagnoses Breast cancer screening by mammogram Procedures VERONICA SCREENING SCREENING MAMMOGRAPHY BI 2-VIEW BREAST INC Daysi Hinton MD [address] [place] [address] [facility] [address] [place] [address] Referral ID Status Reason Start Date Expiration Date Visits Requested Visits Authorized [id number] Authorized Auto-Generat ed Referral 06/15/2022 07/15/2023 1 1 [facility] for referral (narrative)* Diagnostic Procedure Only (Routine) - Closed Specialty Diagnoses / Procedures Referred By Jitendra escalera Referred To Contact [facility] Diagnoses Breast cancer screening by mammogram Procedures VERONICA SCREENING SCREENING MAMMOGRAPHY BI 2-VIEW BREAST INC Daysi Hinton MD [address] [place] [address] [facility] [address] [place] [address] Referral ID Status Reason Start Date Expiration Date V isits Requested Visits Authorized [id number] Closed Auto-Generate d Referral 06/15/2022 07/15/2023 1 1 [facility] for referral (narrative)* Diagnostic Procedure Only (Routine) - Authorized Specialty Diagnoses / Procedures Referred By Jitendra t Referred To Contact [facility] Diagnoses Encounter for screening mammogram for breast cancer Procedures VERONICA SCREENING SCREENING MAMMOGRAPHY BI 2-VIEW BREAST INC CAD Krystal Reza, [employer] OPERATOR.[employer] [address] [place] [address] [facility] [address] [place] [address] Referral ID Status Reason Start Date Expiration Date Visits Requested Visits Authorized [id number] Authorized Auto-Generat ed Referral 03/28/2023 04/25/2024 1 1 [facility] Diagnostic Procedure Only (Routine) - Closed Specialty Diagnoses / Procedures Referred By Contac t Referred To Contact [facility] Diagnoses Breast cancer screening by mammogram Procedures VERONICA SCREENING SCREENING MAMMOGRAPHY BI 2-VIEW BREAST INC Daysi Hinton MD [address] [place] [address] [facility] [address] [place] [address] Referral ID Status Reason Start Date Expiration Date V isits Requested Visits Authorized [id number] Closed Auto-Generate d Referral 06/15/2022 07/15/2023 1 1 [facility] Summary Purpose Family History No Family History Records FoundNo Family History Records Found Advance Directives No Advanced Directives Records FoundNo Advanced Directives Records Found Additional Source Comments INFORMATION SOURCE (unrecogn ized section and content) DATE CREATED AUTHOR AUTHOR'S ORGANIZ ATION 03/29/2023 [facility] Source Comments (unrecognize d section and content) In the event this informatio n is protected by the Federal Confidentiality of Alcohol and Drug Abuse Patient Records regulations: The Federal rules restrict any use of the information to criminally investigate or prosecute any alcohol or drug abuse patient.[facility] the event this information is protected by the Federal Confidentiality of Alcohol and Drug Abuse Patient Records regulations: The Federal rules restrict any use of the information to criminally investigate or prosecute any alcohol or drug abuse patient.[facility] the event this information is protected by the Federal Confidentiality of Alcohol and Drug Abuse Patient Records regulations: The Federal rules restrict any use of the information to criminally investigate or prosecute any alcohol or drug abuse patient.[facility] the event this information is protected by the Federal Confidentiality of Alcohol and Drug Abuse Patient Records regulations: The Federal rules restrict any use of the information to criminally investigate or prosecute any alcohol or drug abuse patient.[facility] the event this information is protected by the Federal Confidentiality of Alcohol and Drug Abuse Patient Records regulations: The Federal rules restrict any use of the information to criminally investigate or prosecute any alcohol or drug abuse patient.[facility] the event this information is protected by the Federal Confidentiality of Alcohol and Drug Abuse Patient Records regulations: The Federal rules restrict any use of the information to criminally investigate or prosecute any alcohol or drug abuse patient.[facility] the event this information is protected by the Federal Confidentiality of Alcohol and Drug Abuse Patient Records regulations: The Federal rules restrict any use of the information to criminally investigate or prosecute any alcohol or drug abuse patient.[facility] the event this information is protected by the Federal Confidentiality of Alcohol and Drug Abuse Patient Records regulations: The Federal rules restrict any use of the information to criminally investigate or prosecute any alcohol or drug abuse patient.[facility] the event this information is protected by the Federal Confidentiality of Alcohol and Drug Abuse Patient Records regulations: The Federal rules restrict any use of the information to criminally investigate or prosecute any alcohol or drug abuse patient.[facility] the event this information is protected by the Federal Confidentiality of Alcohol and Drug Abuse Patient Records regulations: The Federal rules restrict any use of the information to criminally investigate or prosecute any alcohol or drug abuse patient.[facility] Care Teams (unrecognized sec tion and content) Neurology Epilepsy Physician Relationship Specialty Start Date End Date Daysi Olson MD [address] [place] [address] PCP - General Internal Medicine 03/31/16 Neurology Epilepsy Physician Relationship Specialty Start Date End Date Daysi Olson MD [address] [place] [address] PCP - General Internal Medicine 03/31/16 Neurology Epilepsy Physician Relationship Specialty Start Date End Date Daysi Olson MD [address] [place] [address] PCP - General Internal Medicine 03/31/16 Neurology Epilepsy Physician Relationship Specialty Start Date End Date Daysi Olson MD [address] [place] [address] PCP - General Internal Medicine 03/31/16 Neurology Epilepsy Physician Relationship Specialty Start Date End Date Daysi Olson MD [address] [place] [address] PCP - General Internal Medicine 03/31/16 Neurology Epilepsy Physician Relationship Specialty Start Date End Date Daysi Olson MD [address] [place] [address] PCP - General Internal Medicine 03/31/16 Neurology Epilepsy Physician Relationship Specialty Start Date End Date Daysi Olson MD [address] [place] [address] PCP - General Internal Medicine 03/31/16 Neurology Epilepsy Physician Relationship Specialty Start Date End Date Daysi Olson MD [address] [place] [address] PCP - General Internal Medicine 03/31/16 Reason for Visit (unrecogniz ed section and content) Reason Onset Date Comments Refill Request 01/10/2022 Reason Comments F/U 6 months follow up- HCTZ and refills Reason Comments Physical Needs Mammogram orde red to scheduleLeft side discomfort x 2 days Reason Comments Orders FOR RECORDS PERTAINING TO PATIENTS WHO ARE OR HAVE BEEN ENROLLED IN A CHEMICAL DEPENDENCY/SUBSTANCEABUSE PROGRAM, SOME INFORMATION MAY BE OMITTED. This clinical summary was aggregated from multiple sources. Caution should be exercised in using it in the provision of clinical care. This summary normalizes information from multiple sources, and as a consequence, information in this document may materially change the coding, format and clinical context of patient data. In addition, data may be omitted in some cases. CLINICAL DECISIONS SHOULD BE BASED ON THE PRIMARY CLINICAL RECORDS. [employer] provides no warranty or guarantee of the accuracy or completeness of information in this document.
--- NOTE | 2023-04-09 08:15 | MRI_ITS ---
STUDY: MRI BRAIN WITH AND WITHOUT CONTRAST (ATTENTION INTERNAL AUDITORY CANALS - I.A.C.''s) REASON FOR EXAM: Female, 67 years old. ACOUSTIC NEUROMA, LT SUDDEN HEARING LOSS TECHNIQUE: Standardized multiplanar fat and water weighted pulse sequences were obtained. 13 mL of IV Clariscan was administered for the contrast portion of the examination. COMPARISON: None. FINDINGS: Normal bilateral temporal bones. Normal bilateral internal auditory canals. There is no demonstrated intracanalicular or cisternal vestibular schwannoma ( acoustic neuroma ). There is no enhancement of the bilateral VIIth or VIIIth cranial nerves. Normal bilateral cochlea, vestibules and semicircular canals. Normal size of the ventricles and extra-axial spaces for the patient''s age. There are a few tiny subcortical white matter T2 FLAIR hyperintensity foci in both cerebral hemispheres which are most likely chronic white matter ischemic changes. Normal bilateral basal ganglia. Normal thalami. Normal flow voids within the major intracranial circulation suggesting patency by spin echo criteria. Normal venous enhancement. There is no enhancing intra-axial or extra-axial abnormality. There is no extra-axial fluid accumulation. Normal sella turcica, pituitary gland, infundibular stalk, optic chiasm and hypothalamus. Normal tectal plate and pineal gland. Normal midbrain, truman and medulla. Normal cerebellum. Normal basal cisterns. No demonstrated orbital abnormality, within the constraints of a routine brain study. Normal visualized paranasal sinuses. Normal calvarium and skull base. Normal visualized soft tissue structures. Normal visualized upper cervical spine. MRI/Brain W/WO Contrast IMPRESSION: 1. Normal unenhanced and enhanced MRI of the bilateral internal auditory canals (I.A.C''s). 2. A few tiny subcortical white matter T2 FLAIR hyperintensity in both cerebral hemispheres are chronic white matter ischemic changes. Electronically Signed: Cosme Deshpande MD at 10:35 EST ,
[2023-04-09 08:36] LABS: CREATININE FINGERSTICK < 1.0 mg/dL (0.55-1.02); EGFR FINGERSTICK > 60.0000 mL/min (>60)
== END | disposition home or self-care (01) ==
LOC: MRI 07:53
PROVIDERS: PCP Internal Medicine; Referring Provider Otolaryngology Otolaryngology/Facial Plastic Surgery; Visit Provider Otolaryngology Otolaryngology/Facial Plastic Surgery
DX: H91.22 Sudden idiopathic hearing loss, left ear (principal)
CPT/HCPCS: 70553; A9575